=== PATIENT | male | born 1980 | race Caucasian/White ===

== ENCOUNTER 2020-04-25 09:45 | Emergency (ER) | payer OTHER, SELFPAY ==
--- NOTE | ~2020-04-25 | XR_ITS ---
EXAMINATION: XR chest 2V EXAM DATE: 04/25/2020 10:27 INDICATION: Cough for one week. TECHNIQUE: Frontal and lateral projections of the chest obtained and reviewed. Comparison is made to prior examination from 01/22/2006. FINDINGS: The lungs are clear. There are no pleural effusions. The cardiomediastinal silhouette is within normal limits. There is no pneumothorax suspected. The bones and soft tissues are unremarkab le. IMPRESSION: Unremarkable chest x-ray exam. Reviewed, dictated and finalized at location B. [employer] TEACHER
[2020-04-25 09:59] VITALS: BP 125/78; PULSE 74; RESP 16; TEMP 36.9; O2SAT 96
--- NOTE | 2020-04-25 10:21 | ED.URI ---
HPI - URI/Sore Throat General Chief Complaint: Upper Respiratory Infection Stated Complaint: chance/fatigue/body aches/cough Time Seen by Provider: 04/25/20 10:08 Source: patient and RN notes reviewed Mode of arrival: ambulatory Limitations: no limitations History of Present Illness HPI Narrative: Patient presents today with a 1 week history of sinus pressure and nasal congestion, postnasal drip, productive cough, fatigue, headache, as well as shortness of breath with exertion at times.. 3 days ago, patient had a negative rapid Covid test. Denies chest pain, sore throat, fever, loss of taste or smell, nausea, vomiting, diarrhea. He has been taking Robitussin for symptoms. He quit smoking over 2 years ago. MD elicited complaint: cough Related Data Allergies Allergy/AdvReac Type Severity Reaction Status Date / Time No Known Allergies Allergy Verified 06/15/17 13:11 Review of Systems Review of Systems: Narrative: CONSTITUTIONAL: Denies body aches, fever, chills, or sweats.+ Fatigue EYES: Denies visual changes, redness, or discharge. ENT: Denies rhinorrhea, sore throat, or otalgia. + Sinus pressure, nasal congestion, postnasal drip CARDIOVASCULAR: Denies chest pain, palpitations, or edema. RESPIRATORY: + Cough, shortness of breath with exertion GASTROINTESTINAL: Denies abdominal pain, nausea, vomiting, or diarrhea. GENITOURINARY: Denies dysuria or hematuria. SKIN: Denies rash, itching, or wounds. MUSCULOSKELETAL: Denies back pain, joint pain, or myalgia. NEUROLOGIC: Denies numbness, tingling, or weakness.+ Headache PSYCH: Denies depression or anxiety. FORMERLY [facility] Past Medical History Medical History (Updated 04/25/20 @ 10:52 by Sarahy Xavier, [facility], ) No pertinent past medical history Social History Social History (Updated 04/25/20 @ 10:29 by Sarahy Xavier, [facility], ) Smoking status: Former smoker Comments At time of signature, I have reviewed and agree with nursing past medical, surgical, social and family history unless otherwise noted. Please see nursing chart for further information. There is no relevant family history pertinent to the presenting complaint Exam Narrative: Exam Narrative: GENERAL: Well-appearing, well-nourished, and in no acute distress. HEAD: Normocephalic, atraumatic. EYES: EOMI. No redness or drainage. Conjunctivae normal. ENT: Mucous membranes pink and moist. Nares clear. No rhinorrhea. TMs normal bilaterally. Throat normal with small amount of white postnasal drainage. Uvula midline. Nontender frontal and maxillary sinuses. NECK: Normal AROM. Supple. No lymphadenopathy. CHEST: No respiratory distress. Slight expiratory wheeze in the right lower lobe. Slight crackle in the right upper lobe. Otherwise clear HEART: Regular rate and rhythm. No murmur appreciated. Normal peripheral pulses. EXTREMITIES: Normal range of motion. No edema. SKIN: Warm, dry, no rash. Capillary refill normal. Normal skin turgor. NEURO: No focal deficits. Alert and oriented x3. Gait steady. PSYCH: Normal affect. No signs of depression or anxiety. Course Vital Signs Vital signs: Vital Signs Temperature 98.5 F 04/25/20 09:59 Pulse Rate 74 04/25/20 09:59 Respiratory Rate 16 04/25/20 09:59 Blood Pressure 125/78 04/25/20 09:59 Pulse Oximetry 96 04/25/20 09:59 Temperature 98.5 F 04/25/20 09:59 Pulse Rate 74 04/25/20 09:59 Respiratory Rate 16 04/25/20 09:59 Blood Pressure 125/78 04/25/20 09:59 Pulse Oximetry 96 04/25/20 09:59 Reviewed. Pt has been instructed to follow up with his PCP regarding his elevated blood pressure today. MDM - URI/Sore Throat Differential Diagnosis Differential diagnosis: Likely upper respiratory infection, sinusitis, viral infection, bronchitis and other (COVID-19, pneumonia) Critical Care Time Critical Care Time Critical Care Time: No Discharge Plan Discharge Clinical Impression: Bronchitis Upper respiratory infection Qualifiers: U
[2020-04-26 17:16] LABS: SARS-CoV-2 RNA PCR Negative
== END 2020-04-25 11:07 | disposition home or self-care (01) ==
PROVIDERS: Emergency Provider Nurse Practitioner
DX: J40 Bronchitis, not specified as acute or chronic (principal); J06.9 Acute upper respiratory infection, unspecified; Z20.822 Contact with and (suspected) exposure to COVID-19; Z87.891 Personal history of nicotine dependence
CPT/HCPCS: 71046; 99213; C9803; G0463; U0003; U0005

== ENCOUNTER → 2022-04-02 15:45 | Outpatient (CLI) | payer OTHER, SELFPAY ==
--- NOTE | ~2022-04-02 | XR_ITS ---
EXAMINATION: XR foot LT 2V INDICATION: Left foot pain TECHNIQUE: Two views of the left foot are obtained. COMPARISON: None available FINDINGS: No fracture, dislocation, or subluxation. The bones and joint spaces are normal. There is m ild dorsal soft tissue swelling overlying the proximal metatarsals on the lateral view. IMPRESSION: 1. Dorsal soft tissue swelling overlying the proximal metatarsals without acute osseous abnormality. Reviewed, dictated and finalized at location B. ER LOADER
== END ==
PROVIDERS: PCP Emergency Medicine; Visit Provider Emergency Medicine
DX: M79.672 Pain in left foot (principal)
CPT/HCPCS: 73620